=== PATIENT | male | born 1970 | race Caucasian/White ===

== ENCOUNTER 2017-01-28 11:29 | Inpatient (IN) | payer BC, OTHER ==
[2017-01-28] MEDS ORDERED: ACETAMINOPHEN 500 MG TABLET PO STA (11:45)
[2017-01-28] MEDS ORDERED: ACETAMINOPHEN 500 MG TABLET PO ONE (12:23)
[2017-01-28] MEDS ORDERED: SODIUM CHLORIDE 0.9% 1,000 ML IV ONE (12:39)
[2017-01-28] MEDS ORDERED: cefTRIAXone 1 GM in SODIUM CHLORIDE 0.9% MINIBAG 100 ML IV STA (13:02)
[2017-01-28] MEDS ORDERED: VANCOMYCIN INJ 2 GM in SODIUM CHLORIDE 0.9% 500 ML IV STA (13:02)
[2017-01-28] MEDS ORDERED: cefTRIAXone 1 GM VIAL ONE (13:09)
[2017-01-28] MEDS ORDERED: SODIUM CHLORIDE 0.9% MINIBAG 100 ML IV ONE (13:09)
[2017-01-28] MEDS ORDERED: SODIUM CHLORIDE FLUSH 0.9% 10 ML SYRINGE IVP PRN (17:45)
[2017-01-28] MEDS ORDERED: ENOXAPARIN 40 MG/0.4 ML SYRINGE SUBQ STA (17:49)
[2017-01-28] MEDS: SODIUM CHLORIDE 0.9% 1,000 ML IV SCH (19:35)
[2017-01-28] MEDS: SODIUM CHLORIDE FLUSH 0.9% 10 ML SYRINGE IVP SCH (20:52)
[2017-01-28] MEDS: ENOXAPARIN 40 MG/0.4 ML SYRINGE SUBQ SCH (20:52)
[2017-01-29] MEDS ORDERED: IBUPROFEN 600 MG TABLET PO PRN (01:21)
[2017-01-29] MEDS: SODIUM CHLORIDE 0.9% 1,000 ML IV SCH ×2 (01:34→13:05)
[2017-01-29] MEDS: ACETAMINOPHEN 325 MG TABLET PO PRN ×3 (01:34→14:40)
[2017-01-29] MEDS: ceFAZolin 2 GM/50 ML 50 ML IV SCH ×3 (06:28→21:30)
[2017-01-29] MEDS: SODIUM CHLORIDE FLUSH 0.9% 10 ML SYRINGE IVP SCH ×3 (06:32→21:29)
[2017-01-29] MEDS: POLYETHYLENE GLYCOL 3350 17 GM PACKET PO SCH (08:43)
[2017-01-29] MEDS: ENOXAPARIN 40 MG/0.4 ML SYRINGE SUBQ SCH ×2 (08:43→21:28)
[2017-01-30] MEDS: SODIUM CHLORIDE 0.9% 1,000 ML IV SCH ×3 (03:07→20:59)
[2017-01-30] MEDS: ceFAZolin 2 GM/50 ML 50 ML IV SCH ×3 (05:49→21:17)
[2017-01-30] MEDS: SODIUM CHLORIDE FLUSH 0.9% 10 ML SYRINGE IVP SCH ×3 (05:54→21:17)
[2017-01-30] MEDS: ENOXAPARIN 40 MG/0.4 ML SYRINGE SUBQ SCH ×2 (09:06→20:59)
[2017-01-30] MEDS: POLYETHYLENE GLYCOL 3350 17 GM PACKET PO SCH (09:06)
[2017-01-30] MEDS: ACETAMINOPHEN 325 MG TABLET PO PRN (12:27)
[2017-01-30] MEDS: SIMETHICONE CHEW 80 MG TABLET PO PRN (13:25)
[2017-01-31] MEDS: ACETAMINOPHEN 325 MG TABLET PO PRN (05:00)
[2017-01-31] MEDS: SIMETHICONE CHEW 80 MG TABLET PO PRN (05:33)
[2017-01-31] MEDS: SODIUM CHLORIDE 0.9% 1,000 ML IV SCH (05:39)
[2017-01-31] MEDS: SODIUM CHLORIDE FLUSH 0.9% 10 ML SYRINGE IVP SCH (05:39)
[2017-01-31] MEDS: ceFAZolin 2 GM/50 ML 50 ML IV SCH (06:08)
[2017-01-31] MEDS: ENOXAPARIN 40 MG/0.4 ML SYRINGE SUBQ SCH (08:20)
[2017-01-31] MEDS: POLYETHYLENE GLYCOL 3350 17 GM PACKET PO SCH (08:21)
[2017-01-31] MEDS ORDERED: AMOX/CLAV 875 MG/125 MG TABLET PO SCH (11:00)
== END 2017-01-31 13:08 | disposition home or self-care (01) | DRG 603 ==
DX: L03.116 Cellulitis of left lower limb (principal); E66.2 Morbid (severe) obesity with alveolar hypoventilation; Z68.43 Body mass index [BMI] 50.0-59.9, adult; I10 Essential (primary) hypertension; G47.33 Obstructive sleep apnea (adult) (pediatric); F41.9 Anxiety disorder, unspecified; I27.2 Other secondary pulmonary hypertension; Z87.891 Personal history of nicotine dependence; Z80.1 Family history of malignant neoplasm of trachea, bronchus and lung

== ENCOUNTER 2017-02-15 10:24 | Outpatient (CLI) | payer OTHER ==
--- NOTE | 2017-02-15 20:09 | XRAY Preliminary Report ---
Exam: XR Chest 2 View PA/LAT IMPRESSION: Mildly low lung volumes. [facility] SITE ID: [id number]
--- NOTE | 2017-02-15 20:22 | XRAY Report ---
EXAM: CHEST RADIOGRAPHY EXAM DATE: 02/15/2017 10:47 AM. CLINICAL HISTORY: Shortness of breath. COMPARISON: 11/18/2013. TECHNIQUE: 2 views. FINDINGS: Lungs/Pleura: No focal opacities evident. No pleural effusion. No pneumothorax. Mild elevation of bot h hemidiaphragms. Mediastinum: Heart and mediastinal contours are unremarkable. Other: None. IMPRESSION: Mildly low lung volumes. [facility] Referring Provider Line: [phone] SITE ID: [id number]
== END 2017-02-15 10:25 | disposition home or self-care (01) ==
LOC: DI.N 10:24
PROVIDERS: ATTEND Physician Assistant
DX: R91.8 Other nonspecific abnormal finding of lung field (principal)
CPT/HCPCS: 71020

== ENCOUNTER 2018-07-12 09:08 | Emergency (ER) | payer OTHER ==
[2018-07-12 09:20] VITALS: BP 148/83
[2018-07-12] MEDS ORDERED: DEXAMETHASONE 10 MG/ML VIAL PO STA (10:14)
--- NOTE | 2018-07-12 10:22 | ED Physician Documentation ---
PD HPI BACK PAIN - Stated complaint Stated Complaint: BACK PX - Chief complaint Chief Complaint: Back Pain - History obtained from History obtained from: Patient - History of Present Illness Timing - onset: How many weeks ago (2) Timing - duration: Weeks (2) Timing - details: Abrupt onset, Still present Location: Mid, Right Quality: Pain, Spasm, Sharp Associated symptoms: No: Fever, Weakness, Numbness, Incontinent of urine, Unable to urinate, Hematuria, Incontinent of stool Improves with: Rest, Ice, Position Worsened by: Movement Contributing factors: Other (shifted postition rapidly to avoid mat sewer effluent and "twinged" his back) Similar symptoms before: No diagnosis Recently seen: Not recently seen - Additional information Additional information: Previously well 47-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 He states that since then he has had pain in his back and this is gotten significantly worse. He states that he has been able to go to work but he is barely able to stand up straight. He has been very uncomfortable at night trying to sleep. He did try a heating pack which seemed to make things worse. He has not had these specific symptoms previously. He has had back spasms previously that of usually resolve within 1-2 days. He denies any saddle anesthesia or numbness or tingling to his legs or pain to his legs. Review of Systems Constitutional: denies: Fever Ears: denies: Ear pain Nose: denies: Congestion Throat: denies: Sore throat Respiratory: denies: Cough GI: denies: Nausea, Vomiting : denies: Dysuria, Frequency Skin: denies: Rash Musculoskeletal: reports: Back pain. denies: Neck pain, Extremity pain Neurologic: denies: Generalized weakness, Focal weakness, Numbness PD PAST MEDICAL HISTORY - Past Medical History Past Medical History: Yes Cardiovascular: None Respiratory: Sleep apnea, CPAP use Endocrine/Autoimmune: None GI: None : None HEENT: None Psych: None Musculoskeletal: None Derm: None - Past Surgical History Past Surgical History: Yes Ortho: Other HEENT: Tonsil/Adenoidectomy - Present Medications Home Medications: Ambulatory Orders Medication Instructions Recorded Confirmed Amox/Clav 875/125 [Augmentin 1 tab PO Q12H #28 tablet 01/31/17 875/125] Cyclobenzaprine [Flexeril] 10 mg PO TID PRN #20 tablet 07/12/18 oxyCODONE/ACET 5/325 [Percocet 5 1 - 2 each PO Q4-6H PRN #20 tablet 07/12/18 mg/325 mg] - Allergies Allergies/Adverse Reactions: Allergies Allergy/AdvReac Type Severity Reaction Status Date / Time No Known Drug Allergies Allergy Verified 11/17/13 10:05 - Social History Does the pt smoke?: No Smoking Status: Never smoker Does the pt drink ETOH?: No Does the pt have substance abuse?: No - Immunizations Immunizations are current?: Yes PD ED PE NORMAL - Vitals Vital signs reviewed: Yes (hypertensive mild ) - General General: Alert and oriented X 3, No acute distress, Well developed/nourished, Other (standing in the exam room resting elbows on counter. ) - HEENT HEENT: Atraumatic, PERRL, EOMI - Neck Neck: Supple, no meningeal sign - Respiratory Respiratory: No respiratory distress - Back Back: No CVA TTP, No spinal TTP, Other (There is tenderness to the paraspinous muscles of the left thoraco/lumbar area. 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, No motor deficit, No sensory deficit, Normal speech Eye Opening: Spontaneous Motor: Obeys Commands Verbal: Oriented GCS Score: 15 - Psych Psych: Normal mood, Normal affect Results - Vitals Vitals: Vital Signs - 24 hr 07/12/18 09:16 Temperature 35.8 C L Heart Rate 69 Respiratory 20 Rate Blood Pressure 148/83 H O2 Saturation 98 Oxygen O2 Source Room air PD MEDICAL DECISION MAKING - ED course Complexity details: considered differential, d/w patient ED course: 47-year-old male (Big heavy kailash) with back spasm is administered dexamethasone 10 mg orally and we will place him on some pain medication muscle relaxant and provide a note for work for 3 days. Departure - Departure Disposition: 01 Home, Self Care Clinical Impression: Spasm of back muscles Condition: Stable Instructions: ED Spasm Back No Trauma Follow-Up: Your, doctor [Other] Prescriptions: Cyclobenzaprine [Flexeril] 10 mg PO TID PRN #20 tablet PRN Reason: Spasms oxyCODONE/ACET 5/325 [Percocet 5 mg/325 mg] 1 - 2 each PO Q4-6H PRN #20 tablet PRN Reason: Pain Forms: Activity restrictions
[2018-07-12] MEDS ORDERED: CYCLOBENZAPRINE 10 MG TABLET PO STA (10:34)
== END 2018-07-12 10:42 | disposition home or self-care (01) ==
LOC: ED 09:08
DX: M62.830 Muscle spasm of back (principal); X50.1XXA Overexertion from prolonged static or awkward postures, initial encounter; Y99.0 Civilian activity done for income or pay
CPT/HCPCS: 99283; A9270

== ENCOUNTER 2019-01-28 19:44 | Outpatient (CLI) | payer MEDICAID | END 2019-01-28 19:45 | disposition critical access hospital (66) | LOC: EMS 19:44 | PROVIDERS: ATTEND Surgery | DX: R40.20 Unspecified coma (principal) | CPT/HCPCS: A0425; A0433 ==

== ENCOUNTER 2019-01-28 20:00 | Inpatient (IN) | payer MEDICAID, OTHER ==
[2019-01-28] MEDS ORDERED: PROPOFOL 1000 MG/100 ML 100 ML IV STA (20:06)
[2019-01-28] MEDS ORDERED: SODIUM CHLORIDE 0.9% 1,000 ML IV ONE (20:07)
[2019-01-28 20:15] LABS: MUDS CUTOFF CONCENTRATIONS CUTOFF CONC BELOW:
[2019-01-28] MEDS ORDERED: CHARCOAL ACTIVATED 25 GM/120 ML BOTTLE PO STA (20:15)
[2019-01-28 20:16] LABS: BASOPHILS # (AUTO) 0.1 10^3/uL (0.0-0.1); BASOPHILS % (AUTO) 0.9 %; EOSINOPHILS # (AUTO) 0.2 10^3/uL (0.0-0.7); EOSINOPHILS % (AUTO) 2.1 %; HGB - HEMOGLOBIN 14.7 g/dL (14.0-18.0); LYMPHOCYTES # (AUTO) 1.4 10^3/uL (1.5-3.5); LYMPHOCYTES % (AUTO) 15.4 %; MEAN CORPUSCULAR HEMOGLOBIN 28.4 pg (27.0-31.0); MEAN CORPUSCULAR HGB CONC 32.3 g/dL (32.0-36.0); MEAN CORPUSCULAR VOLUME 87.9 fL (80.0-94.0); MEAN PLATELET VOLUME 8.1 fL (7.4-11.4); MONOCYTES # (AUTO) 0.6 10^3/uL (0.0-1.0); MONOCYTES % (AUTO) 6.5 %; NEUTROPHILS # (AUTO) 6.9 10^3/uL (1.5-6.6); NEUTROPHILS % (AUTO) 75.1 %; PLT - PLATELET COUNT 224 10^3/uL (130-450); RED BLOOD COUNT 5.17 10^6/uL (4.70-6.10); RED CELL DISTRIBUTION WIDTH 15.3 % (12.0-15.0); WHITE BLOOD COUNT 9.2 x10^3/uL (4.8-10.8)
[2019-01-28 20:20] LABS: BILIRUBIN,URINE NEGATIVE (NEGATIVE); GLUCOSE, URINE (UA) NEGATIVE (NEGATIVE); KETONES,URINE (UA) NEGATIVE (NEGATIVE); LEUKOCYTE ESTERASE, URINE NEGATIVE (NEGATIVE); NITRITE,URINE NEGATIVE (NEGATIVE); OCCULT BLOOD,URINE NEGATIVE (NEGATIVE); PH,URINE 5.5 PH (5.0-7.5); PROTEIN,URINE 30 mg/dL (NEGATIVE); UROBILINOGEN,URINE 0.2 (NORMAL) E.U./dL (NORMAL)
--- NOTE | 2019-01-28 20:20 | ED Physician Documentation ---
History of Present Illness - Stated complaint Stated Complaint: OD, INTUBATED - Chief complaint Chief Complaint: General - History obtained from History obtained from: EMS - History of Present Illness Timing: Today Pain level max: 0 Pain level now: 0 - Additonal information Additional information: Patient apparently sent text to friends and family members saying livier, friend went to check on him and found him unconscious with pill bottles nearby of nifedipine, zolpidem, lisinopril hydrochlorothiazide. Intubated by EMS on scene. No change with Narcan. Review of Systems Unable to obtain: Intubated PD PAST MEDICAL HISTORY - Past Medical History Cardiovascular: None Respiratory: Sleep apnea, CPAP use Endocrine/Autoimmune: None GI: None : None HEENT: None Psych: None Musculoskeletal: None Derm: None - Past Surgical History Past Surgical History: Yes Ortho: Other HEENT: Tonsil/Adenoidectomy - Present Medications Home Medications: Ambulatory Orders Medication Instructions Recorded Confirmed Amox/Clav 875/125 [Augmentin 1 tab PO Q12H #28 tablet 01/31/17 875/125] Cyclobenzaprine [Flexeril] 10 mg PO TID PRN #20 tablet 07/12/18 oxyCODONE/ACET 5/325 [Percocet 5 1 - 2 each PO Q4-6H PRN #20 tablet /20/18 mg/325 mg] - Allergies Allergies/Adverse Reactions: Allergies Allergy/AdvReac Type Severity Reaction Status Date / Time No Known Drug Allergies Allergy Verified 11/17/13 10:05 - Social History Does the pt smoke?: No Smoking Status: Never smoker Does the pt drink ETOH?: No Does the pt have substance abuse?: No - Immunizations Immunizations are current?: Yes PD ED PE NORMAL - Vitals Vital signs reviewed: Yes - General General: Other (intubated, paralyzed. morbidly obese) - HEENT HEENT: Moist mucous membranes, Other (ETT tube in place) - Neck Neck: Supple, no meningeal sign - Cardiac Cardiac: RRR - Respiratory Respiratory: Clear bilaterally - Abdomen Abdomen: Soft, Non distended - Derm Derm: Warm and dry - Extremities Extremities: No edema - Neuro Neuro: Other (paralyzed) Results - Vitals Vitals: Vital Signs - 24 hr 01/28/19 01/28/19 01/28/19 20:04 20:15 20:30 Temperature Heart Rate 89 84 77 Respiratory 23 20 16 Rate Blood Pressure 138/65 H 110/55 L 95/57 L O2 Saturation 89 L 96 98 01/28/19 01/28/19 01/28/19 20:35 20:39 20:55 Temperature 36.4 C L 36.4 C L Heart Rate 75 76 Respiratory 16 16 Rate Blood Pressure 100/69 106/65 O2 Saturation 97 97 Oxygen O2 Source Mechanical ventilator - EKG (time done) *2001 Rate: Rate (enter#) (87) Rhythm: NSR Hudson: Normal Intervals: Normal CT, Wide QRS Ischemia: Normal ST segments Computer interpretation: Agree with computer - Labs Labs: Laboratory Tests 01/28/19 01/28/19 01/28/19 20:08 20:08 20:10 WBC 9.2 RBC 5.17 Hgb 14.7 Hct 45.4 MCV 87.9 MCH 28.4 MCHC 32.3 RDW 15.3 H Plt Count 224 MPV 8.1 Neut # (Auto) 6.9 H Lymph # (Auto) 1.4 L Dorado # (Auto) 0.6 Eos # (Auto) 0.2 Baso # (Auto) 0.1 Absolute Nucleated RBC 0.01 Nucleated RBC % 0.1 PT INR APTT Sodium 140 Potassium 3.8 Chloride 103 Carbon Dioxide 28 Anion Gap 9.0 BUN 22 H Creatinine 0.7 Estimated GFR (MDRD) 119 Glucose 149 H Calcium 8.6 Total Bilirubin 0.4 AST 18 ALT 19 Alkaline Phosphatase 84 Total Protein 7.7 Albumin 3.8 Globulin 3.9 Albumin/Globulin Ratio 1.0 Lipase 23 Urine Color YELLOW Urine Clarity CLEAR Urine pH 5.5 Ur Specific Tutor Key >=1.030 H Urine Protein 30 H Urine Glucose (UA) NEGATIVE Urine Ketones NEGATIVE Urine Occult Blood NEGATIVE Urine Nitrite NEGATIVE Urine Bilirubin NEGATIVE Urine Urobilinogen 0.2 (NORMAL) Ur Leukocyte Esterase NEGATIVE Urine RBC 0-5 Urine WBC 0-3 Ur Squamous Epith Cells RARE Squamous Urine Bacteria None Seen Urine Casts 0-2 Hyaline Casts Ur Microscopic Review INDICATED Urine Culture Comments NOT INDICATED Salicylates < 6.0 Urine Opiates Screen NEGATIVE Ur Oxycodone Screen NEGATIVE Urine Methadone Screen NEGATIVE Ur Propoxyphene Screen NEGATIVE Acetaminophen < 10 L Ur Barbiturates Screen NEGATIVE Ur Tricyclics Screen NEGATIVE Ur Phencyclidine Scrn NEGATIVE Ur Amphetamine Screen NEGATIVE U Methamphetamines Scrn NEGATIVE U Benzodiazepines Scrn NEGATIVE Urine Cocaine Screen NEGATIVE U Cannabinoids Screen NEGATIVE Ethyl Alcohol < 5.0 01/28/19 20:28 WBC RBC Hgb Hct MCV MCH MCHC RDW Plt Count MPV Neut # (Auto) Lymph # (Auto) Dorado # (Auto) Eos # (Auto) Baso # (Auto) Absolute Nucleated RBC Nucleated RBC % PT 12.4 INR 1.1 APTT 28.3 Sodium Potassium Chloride Carbon Dioxide Anion Gap BUN Creatinine Estimated GFR (MDRD) Glucose Calcium Total Bilirubin AST ALT Alkaline Phosphatase Total Protein Albumin Globulin Albumin/Globulin Ratio Lipase Urine Color Urine Clarity Urine pH Ur Specific Tutor Key Urine Protein Urine Glucose (UA) Urine Ketones Urine Occult Blood Urine Nitrite Urine Bilirubin Urine Urobilinogen Ur Leukocyte Esterase Urine RBC Urine WBC Ur Squamous Epith Cells Urine Bacteria Urine Casts Ur Microscopic Review Urine Culture Comments Salicylates Urine Opiates Screen Ur Oxycodone Screen Urine Methadone Screen Ur Propoxyphene Screen Acetaminophen Ur Barbiturates Screen Ur Tricyclics Screen Ur Phencyclidine Scrn Ur Amphetamine Screen U Methamphetamines Scrn U Benzodiazepines Scrn Urine Cocaine Screen U Cannabinoids Screen Ethyl Alcohol - Rads (name of study) cxr Radiology: Prelim report reviewed, EMP read contemporaneously, See rad report (ETT and NG tube in place. ) Procedures - Central Line Central Line Preparation: Unable to obtain consent Central line location: Right Femoral Central line type: Triple lumen Central line aftercare: Chlorhexidine disc placed, Secured, No complications, Bundle checklist complete, Pt tolerated well PD MEDICAL DECISION MAKING - ED course Complexity details: reviewed results, re-evaluated patient, considered differential, d/w product consultant ED course: 48-year-old male status post an intentional overdose today. Appears to be a suicide attempt. NG tube was placed as well as Chowdary catheter. Maintained on a propofol drip. Discussed the case with poison control who recommends placing him in the hospital for continuous monitoring. Frequent blood glucose checks, monitor for seizures and arrhythmias. They state that this may take well over 24 hours because of the extended release nifedipine. He is also prescribed metoprolol and montelukast at home, unclear if he took these or not. Discussed the case with Dr. Sidhu, hospitalist who accepts for admission but states that he will need a central line. Due to body habitus internal jugulars are not an option and subclavian appears risky. Therefore a femoral central line was placed. This will only be in place for less than 24 hours it is my suspicion. Patient admitted to the ICU This document was made in part using voice recognition software. While efforts are made to proofread this document, sound alike and grammatical errors may occur. - Critical Care Time(min): 60 Time Includes: See progress note Data interpretation: See progress note Procedures included in critical care time: See progress note Procedures excluded from critical care time: Central IV, See progress note Departure - Departure Disposition: 66 [facility] DC/Xfer Clinical Impression: Intentional overdose of drug in tablet form, Suicide attempt Condition: Stable
[2019-01-28 20:28] LABS: ACETAMINOPHEN < 10 ug/mL (10-30); ALBUMIN 3.8 g/dL (3.2-5.5); ALKALINE PHOSPHATASE 84 IU/L (42-121); ALT ALANINE AMINOTRANSFERASE 19 IU/L (10-60); AST ASPARTATE AMINOTRANSFERASE 18 IU/L (10-42); BILIRUBIN,TOTAL 0.4 mg/dL (0.2-1.0); BUN - BLOOD UREA NITROGEN 22 mg/dL (6-20); CALCIUM 8.6 mg/dL (8.5-10.3); CARBON DIOXIDE - CO2 28 mmol/L (21-32); CHLORIDE 103 mmol/L (101-111); CREATININE 0.7 mg/dL (0.6-1.2); GFR - MDRD 119 (>89); GLUCOSE 149 mg/dL (70-100); LIPASE 23 U/L (22-51); SALICYLATE < 6.0 mg/dL; SODIUM 140 mmol/L (135-145); TOTAL PROTEIN 7.7 g/dL (6.7-8.2)
[2019-01-28 20:31] LABS: CLARITY,URINE CLEAR (CLEAR)
[2019-01-28 20:32] LABS: BACTERIA,URINE None Seen /HPF (None Seen); CASTS, URINE 0-2 Hyaline Casts /LPF; RBC,URINE 0-5 /HPF (0-5); SQUAMOUS EPITHELIAL CELL,UR RARE Squamous (<= Few)
[2019-01-28 20:33] LABS: AMPHETAMINE SCREEN,URINE NEGATIVE (NEGATIVE); BENZODIAZEPINES SCREEN, URINE NEGATIVE (NEGATIVE); COCAINE SCREEN URINE NEGATIVE (NEGATIVE); METHADONE SCREEN, URINE NEGATIVE (NEGATIVE); METHAMPHETAMINES SCREEN, URINE NEGATIVE (NEGATIVE); OPIATE SCREEN, URINE NEGATIVE (NEGATIVE); OXYCODONE SCREEN, URINE NEGATIVE (NEGATIVE); PROPOXYPHENE SCREEN, URINE NEGATIVE (NEGATIVE); TRICYCLIC ANTIDEPRESSANT,URINE NEGATIVE (NEGATIVE)
[2019-01-28 20:40] LABS: INR 1.1 (0.8-1.2); PT - PROTHROMBIN TIME 12.4 secs (9.9-12.6)
[2019-01-28 20:48] LABS: PARTIAL THROMBOPLASTIN TIME 28.3 secs (24.9-33.3)
--- NOTE | 2019-01-28 20:55 | XRAY Report ---
Reason: Post intubation and NG tube Procedure Date: 01/28/2019 Accession Number: [id number] / [id number] Procedure: XR - Chest for Line Placement CPT Code: FULL RESULT: EXAM: CHEST RADIOGRAPHY EXAM DATE: 01/28/2019 08:27 PM. CLINICAL HISTORY: Patient found unresponsive after overdose today. Post intubation and NG tube. COMPARISON: CHEST 2 VIEW PA/LAT 02/15/2017 10:46 AM. TECHNIQUE: 1 view. FINDINGS: Lungs/Pleura: Mildly low lung volumes. Opacification of inferior third left lung. No pneumothorax. Mild blunting of the left lateral costophrenic angle. Mediastinum: New mild cardiomegaly. Endotracheal tube in place with the tip 4 cm above the gualberto. NG tube in place with the tip in the gastric cardia. Other: None. IMPRESSION: 1. Support devices in good position. 2. Mild cardiomegaly. 3. Left lung base consolidation/atelectasis and a small left pleural effusion. [facility]
[2019-01-28] MEDS ORDERED: VECURONIUM 10 MG VIAL IVP STA (21:00)
[2019-01-28] MEDS ORDERED: SODIUM CHLORIDE FLUSH 0.9% 10 ML SYRINGE IVP PRN (21:00)
[2019-01-28] MEDS ORDERED: DEXTROSE 5%-0.45% NACL 1,000 ML IV SCH (21:00)
--- NOTE | 2019-01-28 21:58 | HISTORY & PHYSICAL EXAMINATION ---
Chief Complaint - Chief Complaint Chief Complaint: intentional drug overdose History of Present Illness - Admitted From Admitted From:: [facility] ED - History Obtained From Records Reviewed: yes History obtained from: chart and ED physician Exam Limitations: sedated and intubated - History of Present Illness HPI Comment/Other: Patient seen on 01/28/19 at 20:00pm "Patient apparently sent text to friends and family members saying josée, friend went to check on him and found him unconscious with pill bottles nearby of nifedipine, zolpidem, lisinopril hydrochlorothiazide. Intubated by EMS on scene. No change with Narcan." The above was obtained from the ED H&P because the patient is currently sedated and intubated. There is no family or friend nearly to provide history History - Past Medical History Cardiovascular: reports: None Respiratory: reports: Sleep apnea, CPAP use, Other (Pulmonary hypertension) Endocrine/Autoimmune: reports: None, Other (morbid obesity) GI: reports: None : reports: None HEENT: reports: None Psych: reports: None Musculoskeletal: reports: None Derm: reports: None MRSA Hx?: No - Past Surgical History Ortho: reports: Other HEENT: reports: Tonsil/Adenoidectomy - Family & Social History Family History: Mother: Cancer (lung cancer), Father: (father of an aortic aneurysm) Living arrangement: At home Living Situation: Alone Social History Notes: As obtained from previous H&P: He used to smoke approximately 1.5 packs per day but stopped 11 years ago. He does not drink alcohol, does not use any illicits. 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 He lives alone in [place]. Had a Divehi short-hair dog. - POLST Patient has POLST: No POLST Status: Full Code Meds/Allgy - Home Medications Home Medications: Ambulatory Orders Medication Instructions Recorded Confirmed Amox/Clav 875/125 [Augmentin 1 tab PO Q12H #28 tablet 01/31/17 875/125] Cyclobenzaprine [Flexeril] 10 mg PO TID PRN #20 tablet 07/12/18 oxyCODONE/ACET 5/325 [Percocet 5 1 - 2 each PO Q4-6H PRN #20 tablet 10/20/18 mg/325 mg] - Allergies Allergies/Adverse Reactions: Allergies Allergy/AdvReac Type Severity Reaction Status Date / Time No Known Drug Allergies Allergy Verified 11/17/13 10:05 Review of Systems - All Other Systems All Other Systems: reports: Other (Limited ROS because the patient is currently sedated and intubated and unable to provide.) Prior Level of Functionality: Independent of activities of daily living Exam - Vital Signs Reviewed Vital Signs: Yes Vital Signs: Vital Signs x48h Temp Pulse Resp BP Pulse Ox 01/28/19 21:38 63 16 91/58 L 95 01/28/19 21:32 63 01/28/19 21:25 36.5 C 77 16 93/65 97 01/28/19 21:10 36.5 C 76 16 92/67 92 01/28/19 21:00 36.5 C 75 16 97/67 95 01/28/19 20:55 36.4 C L 76 16 106/65 97 01/28/19 20:39 36.4 C L 01/28/19 20:35 75 16 100/69 97 01/28/19 20:30 77 16 95/57 L 98 01/28/19 20:15 84 20 110/55 L 96 01/28/19 20:04 89 23 138/65 H 89 L - Physical Exam General Appearance: positive: Other (Sedated and intubated Morbidly obese) Eyes Bilateral: positive: Normal inspection, PERRL, No scleral icterus ENT: positive: Other (mild nose bleed from ng tube insertion) Neck: positive: Trachea midline, Other (very widened neck circumference) Respiratory: positive: Other (decreased breath sounds 2/2 body habitus). negative: Wheezes, Rales, Rhonchi Cardiovascular: positive: Regular rate & rhythm Abdomen: positive: Non-tender, Nml bowel sounds, Other (obese abdomen) Skin: positive: Skin rash (discoloration in groin area) Extremities: positive: Nml appearance, No pedal edema Neurologic/Psychiatric: positive: Other (Sedated and intubated). negative: Oriented x3 Conclusion/Plan - Problem List (1) Intentional overdose of drug in tablet form Conclusion/Plan: Patient ingested unknown doses of nifedipine ER, HCTZ, lisinopril and zolpidem Patient received activated charcoal in the ED NG tube to low intermittent suction Patient intubated and sedated On propofol gtt for sedation On dopamine gtt for blood pressure support 1L NS bolus given. Fluids continued at 125ml/hr Poison control was contacted: Guidelines are to monitor for hyperglycemia, seizures and arrhythmias POC glucose check q3hrs. Anticipating at least 24 hours on vent given extended duration of action of nifedipine (2) Suicide attempt Conclusion/Plan: When medically cleared, please consult social work/psych for evaluation and recs (3) Obesity Qualifiers: Obesity classification: adult class 3 (BMI >= 40) Body mass index: BMI 50.0-59.9 - Lab Results Fish Bones: 01/28/19 20:08 01/28/19 20:08
[2019-01-28] MEDS ORDERED: SODIUM CHLORIDE 0.9% 1,000 ML IV SCH ×3 (22:00→23:49)
[2019-01-28] MEDS: PROPOFOL 1000 MG/100 ML 100 ML IV SCH (22:26)
[2019-01-28] MEDS: DOPamine 800 MG/500 ML 800 MG/500 ML BAG IV SCH (22:36)
--- NOTE | 2019-01-28 22:42 | XRAY Report ---
Reason: femoral line placement Procedure Date: 01/28/2019 Accession Number: [id number] / [id number] Procedure: XR - Chest for Line Placement CPT Code: FULL RESULT: EXAM: CHEST RADIOGRAPHY EXAM DATE: 01/28/2019 10:37 PM. CLINICAL HISTORY: Femoral line placement. COMPARISON: CHEST 1 VIEW 01/28/2019 8:13 PM. TECHNIQUE: 1 view. FINDINGS: Lungs/Pleura: No focal opacities evident. No pleural effusion. No pneumothorax. Mediastinum: Within exam limitations, the cardiomediastinal contour is normal. Other: Endotracheal tube tip is in the mid trachea. IMPRESSION: 1. No acute infiltrates. 2. Endotracheal tube tip in the mid trachea. [facility]
[2019-01-28] MEDS: HEPARIN 5,000 UNIT/ML VIAL SUBQ SCH (22:49)
[2019-01-28] MEDS: NYSTATIN POWDER 15 GM TOP SCH (22:50)
[2019-01-29] MEDS: SODIUM CHLORIDE FLUSH 0.9% 10 ML SYRINGE IVP SCH ×3 (00:39→18:05)
[2019-01-29] MEDS: PROPOFOL 1000 MG/100 ML 100 ML IV SCH ×6 (00:53→21:46)
[2019-01-29] MEDS: SODIUM CHLORIDE 0.9% 1,000 ML IV SCH ×4 (02:21→14:47)
[2019-01-29] MEDS ORDERED: SODIUM CHLORIDE 0.9% 1,000 ML IV ONE ×2 (04:46→05:35)
[2019-01-29] MEDS ORDERED: INSULIN REGULAR HUMAN 100 UNIT/1 ML 10 ML MDV IVP STA (04:52)
[2019-01-29] MEDS ORDERED: DEXTROSE 50% ABBOJECT 25 GM/50 ML SYRINGE IVP ONE (04:53)
[2019-01-29 05:26] LABS: BASOPHILS # (AUTO) 0.1 10^3/uL (0.0-0.1); BASOPHILS % (AUTO) 0.5 %; EOSINOPHILS % (AUTO) 0.3 %; HGB - HEMOGLOBIN 14.2 g/dL (14.0-18.0); LYMPHOCYTES # (AUTO) 0.7 10^3/uL (1.5-3.5); LYMPHOCYTES % (AUTO) 5.9 %; MEAN CORPUSCULAR HEMOGLOBIN 28.7 pg (27.0-31.0); MEAN CORPUSCULAR HGB CONC 32.8 g/dL (32.0-36.0); MEAN CORPUSCULAR VOLUME 87.5 fL (80.0-94.0); MONOCYTES # (AUTO) 0.5 10^3/uL (0.0-1.0); MONOCYTES % (AUTO) 3.7 %; NEUTROPHILS # (AUTO) 11.3 10^3/uL (1.5-6.6); NEUTROPHILS % (AUTO) 89.6 %; PLT - PLATELET COUNT 223 10^3/uL (130-450); RED BLOOD COUNT 4.93 10^6/uL (4.70-6.10); WHITE BLOOD COUNT 12.6 x10^3/uL (4.8-10.8)
[2019-01-29 05:38] LABS: ALBUMIN 3.8 g/dL (3.2-5.5); ALBUMIN/GLOBULIN RATIO 1.2 (1.0-2.2); BILIRUBIN,TOTAL 0.5 mg/dL (0.2-1.0); CALCIUM 8.4 mg/dL (8.5-10.3); CREATININE 1.7 mg/dL (0.6-1.2); MAGNESIUM 1.7 mg/dL (1.7-2.8); PHOSPHORUS 2.5 mg/dL (2.5-4.6); TOTAL PROTEIN 7.1 g/dL (6.7-8.2)
[2019-01-29 05:47] LABS: ABG BASE EXCESS -7.3 mmol/L (-2.0-3.0); ABG HCO3 19.3 mmol/L (22.0-26.0); ABG OXYGEN SATURATION 98 % (94-98); ABG PCO2 43 mmHg (34-45); ABG PH 7.27 (7.35-7.45); ABG PO2 120 mmHg (80-100); ABG TCO2 20.7 MMOL/L (21.0-29.0); ALLEN TEST POSITIVE
[2019-01-29 05:50] LABS: ABG HCO3 21.4 mmol/L (22.0-26.0); ABG PCO2 40 mmHg (34-45); ABG PH 7.35 (7.35-7.45); ABG PO2 85 mmHg (80-100); ABG TCO2 22.6 MMOL/L (21.0-29.0)
[2019-01-29 05:51] LABS: ABG BASE EXCESS -3.8 mmol/L (-2.0-3.0); ABG OXYGEN SATURATION 96 % (94-98); ALLEN TEST POSITIVE
[2019-01-29] MEDS ORDERED: MAGNESIUM SULFATE 2 GRAM 2 GM/50 ML BAG IV ONE (06:00)
[2019-01-29] MEDS: POTASSIUM CHLOR 20 MEQ/100 ML 20 MEQ/100 ML BAG IV SCH ×2 (07:31→08:29)
[2019-01-29] MEDS ORDERED: CALCIUM GLUCONATE 1,000 MG in SODIUM CHLORIDE 0.9% 50 ML IV ONE (08:00)
[2019-01-29] MEDS: DOPamine 800 MG/500 ML 800 MG/500 ML BAG IV SCH ×2 (09:15→13:24)
--- NOTE | 2019-01-29 09:22 | PROVIDER PROGRESS NOTE ---
Assessment/Plan - Problem List (1) Hypotension due to drugs Assessment/Plan: He is on saline iv, Dopamine iv, and got meds to reverse the effects of his Ca- channel viktor. He gets intermittent drops in BP, possibly from intermittent effects of the meds being absorbed. Poison Control said that may last for 24 hours. Continue aggressive daugherty[portive care in ICU. (2) Pulmonary edema determined by examination Assessment/Plan: The patient is (+) >5L since admission, which was less than 24 hours ago, because he was aggressively resuscitated with iv saline, currently infusing at 250 cc/hr. Today's CXR shows pulmonary edema. ET and ng tubes are in proper locations. Will decrease iv hydration rate, as BP is kept adequate with pressors. He may need iv Lasix as well. Will check an EKG, troponins for acute MO, and an Echo to assess LV contractility. Follow BNP and CXR daily as well. (3) ALEXANDER (acute kidney injury) Assessment/Plan: Possibly related to kidney damage when was obtunded and hypotensive at the scene. Aggressive iv fluids have been administered. Will decrease the iv rate and probably start a diuretic for managing the pulmonary edema. Follow renal labs daily. (4) Endotracheally intubated Assessment/Plan: Trial of decreasing his vent settings and CPAP were tried, but no extubation, given his pulmonary edema. Continue gentle sedation. (5) Intentional overdose of drug in tablet form Assessment/Plan: As per H&P. He will need a SW eval when medically stable. (6) Suicide attempt Assessment/Plan: As above. (7) KARELY (obstructive sleep apnea) Assessment/Plan: His home CPAP device will be ordered to use, once he is extubated. (8) Obesity Qualifiers: Obesity classification: adult class 3 (BMI >= 40) Body mass index: BMI 50.0-59.9 Assessment/Plan: Plan as above. - Current Meds Current Meds: Current Medications Generic Name Dose Route Start Last Admin Trade Name Freq PRN Reason Stop Dose Admin Heparin Sodium (Porcine) 5,000 unit 01/28/19 21:00 01/28/19 22:49 SUBQ 5,000 unit BID CHIO Administration Propofol 100 mls @ 7.2 mls/hr 01/28/19 22:00 01/29/19 09:15 Diprivan IV 25 mcg/kg/min .[id number] CHIO 18 mls/hr Titration Protocol 10 MCG/KG/MIN Dopamine HCl/Dextrose 800 mg in 500 mls @ 9 mls/hr 01/28/19 22:00 01/29/19 09:15 Dopamine IV 9 mcg/kg/min .[id number] CHIO 40.5 mls/hr Administration Protocol 2 MCG/KG/MIN Sodium Chloride 1,000 mls @ 250 mls/hr 01/29/19 01:25 01/29/19 07:47 Normal Saline 0.9% IV 250 mls/hr .Q4H CHIO Administration Potassium Chloride 20 meq in 100 mls @ 100 mls/hr 01/29/19 07:00 01/29/19 08:29 Potassium Chloride IV 01/29/19 09:59 100 mls/hr Q2H CHIO Administration Protocol Nystatin 1 applic 01/28/19 22:00 01/28/19 22:50 Nystop TOP 1 applic BID CHIO Administration Sodium Chloride 10 ml 01/29/19 01:00 01/29/19 00:39 Normal Saline Flush 0.9% IVP 10 ml 0100,0900,1700 CHIO Administration - Lab Result Fish Bone Diagrams: 01/29/19 05:10 01/29/19 05:10 - Additional Planning My Orders: My Active Orders 01/29/19 09:18 Miscellaenous Nursing Order [RC] ONCE Subjective - Subjective Nursing Reports: Other (Pt intubated, sedated) Objective Vital Signs: Vital Signs - 24 hr 01/28/19 01/28/19 01/28/19 20:04 20:15 20:30 Temperature Heart Rate 89 84 77 Heart Rate [ Monitoring electrodes] Respiratory 23 20 16 Rate Blood Pressure 138/65 H 110/55 L 95/57 L Blood Pressure [Right Brachial artery] O2 Saturation 89 L 96 98 01/28/19 01/28/19 01/28/19 20:35 20:39 20:55 Temperature 36.4 C L 36.4 C L Heart Rate 75 76 Heart Rate [ Monitoring electrodes] Respiratory 16 16 Rate Blood Pressure 100/69 106/65 Blood Pressure [Right Brachial artery] O2 Saturation 97 97 01/28/19 01/28/19 01/28/19 21:00 21:10 21:19 Temperature 36.5 C 36.5 C Heart Rate 75 76 105 H Heart Rate [ Monitoring electrodes] Respiratory 16 16 Rate Blood Pressure 97/67 92/67 Blood Pressure [Right Brachial artery] O2 Saturation 95 92 01/28/19 01/28/19 01/28/19 21:25 21:30 21:32 Temperature 36.5 C Heart Rate 77 63 Heart Rate [ 64 Monitoring electrodes] Respiratory 16 16 Rate Blood Pressure 93/65 Blood Pressure 91/58 L [Right Brachial artery] O2 Saturation 97 95 01/28/19 01/28/19 01/28/19 21:38 21:59 22:00 Temperature Heart Rate 63 71 69 Heart Rate [ 67 Monitoring electrodes] Respiratory 16 16 Rate Blood Pressure 91/58 L 138/30 H Blood Pressure 138/30 H [Right Brachial artery] O2 Saturation 95 97 01/28/19 01/28/19 01/28/19 22:02 22:03 22:04 Temperature Heart Rate 74 68 66 Heart Rate [ Monitoring electrodes] Respiratory 18 16 16 Rate Blood Pressure 90/55 L Blood Pressure [Right Brachial artery] O2 Saturation 01/28/19 01/28/19 01/28/19 22:05 22:10 22:15 Temperature Heart Rate 70 66 68 Heart Rate [ Monitoring electrodes] Respiratory 16 16 15 Rate Blood Pressure Blood Pressure [Right Brachial artery] O2 Saturation 01/28/19 01/28/19 01/28/19 22:16 22:17 22:20 Temperature Heart Rate 82 69 68 Heart Rate [ Monitoring electrodes] Respiratory 17 16 16 Rate Blood Pressure 84/47 L Blood Pressure [Right Brachial artery] O2 Saturation 01/28/19 01/28/19 01/28/19 22:21 22:22 22:25 Temperature Heart Rate 66 68 67 Heart Rate [ Monitoring electrodes] Respiratory 18 16 14 Rate Blood Pressure 80/40 L Blood Pressure [Right Brachial artery] O2 Saturation 01/28/19 01/28/19 01/28/19 22:29 22:30 22:31 Temperature Heart Rate 66 59 L 66 Heart Rate [ Monitoring electrodes] Respiratory 16 12 25 H Rate Blood Pressure 76/52 L Blood Pressure [Right Brachial artery] O2 Saturation 01/28/19 01/28/19 01/28/19 22:32 22:35 22:40 Temperature Heart Rate 66 64 67 Heart Rate [ Monitoring electrodes] Respiratory 14 19 16 Rate Blood Pressure 79/56 L Blood Pressure [Right Brachial artery] O2 Saturation 01/28/19 01/28/19 01/28/19 22:41 22:42 22:45 Temperature Heart Rate 68 66 62 Heart Rate [ Monitoring electrodes] Respiratory 16 16 17 Rate Blood Pressure 84/59 L Blood Pressure [Right Brachial artery] O2 Saturation 01/28/19 01/28/19 01/28/19 22:48 22:49 22:50 Temperature Heart Rate 65 68 64 Heart Rate [ Monitoring electrodes] Respiratory 16 16 16 Rate Blood Pressure 76/42 L Blood Pressure [Right Brachial artery] O2 Saturation 01/28/19 01/28/19 01/28/19 22:51 22:52 22:55 Temperature Heart Rate 62 70 72 Heart Rate [ Monitoring electrodes] Respiratory 16 16 16 Rate Blood Pressure 75/42 L Blood Pressure [Right Brachial artery] O2 Saturation 01/28/19 01/28/19 01/28/19 22:56 22:57 23:00 Temperature 36.5 C Heart Rate 68 69 72 Heart Rate [ 68 Monitoring electrodes] Respiratory 16 18 17 Rate Blood Pressure 80/35 L Blood Pressure 90/36 L [Right Brachial artery] O2 Saturation 99 01/28/19 01/28/19 01/28/19 23:01 23:02 23:05 Temperature Heart Rate 70 71 72 Heart Rate [ Monitoring electrodes] Respiratory 17 16 16 Rate Blood Pressure 90/36 L Blood Pressure [Right Brachial artery] O2 Saturation 01/28/19 01/28/19 01/28/19 23:06 23:07 23:08 Temperature Heart Rate 71 72 71 Heart Rate [ Monitoring electrodes] Respiratory 16 16 Rate Blood Pressure 96/39 L Blood Pressure [Right Brachial artery] O2 Saturation 01/28/19 01/28/19 01/28/19 23:10 23:11 23:12 Temperature Heart Rate 71 73 75 Heart Rate [ Monitoring electrodes] Respiratory 14 16 18 Rate Blood Pressure 102/70 Blood Pressure [Right Brachial artery] O2 Saturation 01/28/19 01/28/19 01/28/19 23:15 23:16 23:17 Temperature Heart Rate 75 75 76 Heart Rate [ Monitoring electrodes] Respiratory 17 16 15 Rate Blood Pressure 109/27 L Blood Pressure [Right Brachial artery] O2 Saturation 01/28/19 01/28/19 01/28/19 23:20 23:21 23:22 Temperature Heart Rate 78 80 78 Heart Rate [ Monitoring electrodes] Respiratory 16 16 16 Rate Blood Pressure 126/47 L Blood Pressure [Right Brachial artery] O2 Saturation 01/28/19 01/28/19 01/28/19 23:25 23:26 23:27 Temperature Heart Rate 84 83 88 Heart Rate [ Monitoring electrodes] Respiratory 15 12 23 Rate Blood Pressure 118/42 L Blood Pressure [Right Brachial artery] O2 Saturation 01/28/19 01/28/19 01/28/19 23:30 23:31 23:32 Temperature Heart Rate 91 91 91 Heart Rate [ Monitoring electrodes] Respiratory 15 14 14 Rate Blood Pressure 124/53 L Blood Pressure [Right Brachial artery] O2 Saturation 01/28/19 01/28/19 01/28/19 23:35 23:36 23:37 Temperature Heart Rate 93 96 98 Heart Rate [ Monitoring electrodes] Respiratory 16 16 16 Rate Blood Pressure 111/56 L Blood Pressure [Right Brachial artery] O2 Saturation 01/28/19 01/28/19 01/28/19 23:38 23:40 23:45 Temperature Heart Rate 100 97 100 Heart Rate [ Monitoring electrodes] Respiratory 15 16 15 Rate Blood Pressure Blood Pressure [Right Brachial artery] O2 Saturation 01/28/19 01/28/19 01/28/19 23:46 23:47 23:50 Temperature Heart Rate 101 H 102 H 102 H Heart Rate [ Monitoring electrodes] Respiratory 14 17 16 Rate Blood Pressure 129/55 L Blood Pressure [Right Brachial artery] O2 Saturation 01/28/19 01/29/19 01/29/19 23:55 00:00 00:01 Temperature Heart Rate 102 H 99 101 H Heart Rate [ 95 Monitoring electrodes] Respiratory 14 16 15 Rate Blood Pressure Blood Pressure 108/49 L [Right Brachial artery] O2 Saturation 95 01/29/19 01/29/19 01/29/19 00:02 00:05 00:10 Temperature Heart Rate 103 H 101 H 102 H Heart Rate [ Monitoring electrodes] Respiratory 14 19 16 Rate Blood Pressure 108/49 L Blood Pressure [Right Brachial artery] O2 Saturation 01/29/19 01/29/19 01/29/19 00:11 00:12 00:15 Temperature Heart Rate 100 101 H 101 H Heart Rate [ Monitoring electrodes] Respiratory 15 18 14 Rate Blood Pressure 111/49 L Blood Pressure [Right Brachial artery] O2 Saturation 01/29/19 01/29/19 01/29/19 00:16 00:17 00:20 Temperature Heart Rate 98 99 100 Heart Rate [ Monitoring electrodes] Respiratory 15 19 16 Rate Blood Pressure 108/49 L Blood Pressure [Right Brachial artery] O2 Saturation 01/29/19 01/29/19 01/29/19 00:25 00:30 00:31 Temperature Heart Rate 100 99 99 Heart Rate [ Monitoring electrodes] Respiratory 17 18 16 Rate Blood Pressure Blood Pressure [Right Brachial artery] O2 Saturation 01/29/19 01/29/19 01/29/19 00:32 00:35 00:40 Temperature Heart Rate 99 92 99 Heart Rate [ Monitoring electrodes] Respiratory 17 14 22 Rate Blood Pressure 106/47 L Blood Pressure [Right Brachial artery] O2 Saturation 01/29/19 01/29/19 01/29/19 00:41 00:42 00:43 Temperature Heart Rate 98 97 99 Heart Rate [ Monitoring electrodes] Respiratory 16 16 17 Rate Blood Pressure 103/40 L Blood Pressure [Right Brachial artery] O2 Saturation 01/29/19 01/29/19 01/29/19 00:44 00:45 00:46 Temperature Heart Rate 98 100 99 Heart Rate [ Monitoring electrodes] Respiratory 17 18 14 Rate Blood Pressure 105/44 L Blood Pressure [Right Brachial artery] O2 Saturation 01/29/19 01/29/19 01/29/19 00:47 00:50 00:51 Temperature Heart Rate 100 102 H 102 H Heart Rate [ Monitoring electrodes] Respiratory 16 18 16 Rate Blood Pressure 113/47 L Blood Pressure [Right Brachial artery] O2 Saturation 01/29/19 01/29/19 01/29/19 00:52 00:55 00:56 Temperature Heart Rate 105 H 102 H 101 H Heart Rate [ Monitoring electrodes] Respiratory 19 16 16 Rate Blood Pressure 107/41 L Blood Pressure [Right Brachial artery] O2 Saturation 01/29/19 01/29/19 01/29/19 00:57 01:00 01:01 Temperature 36.7 C Heart Rate 105 H 105 H 107 H Heart Rate [ 108 H Monitoring electrodes] Respiratory 17 18 16 Rate Blood Pressure 111/52 L Blood Pressure 108/44 L [Right Brachial artery] O2 Saturation 94 01/29/19 01/29/19 01/29/19 01:02 01:05 01:06 Temperature Heart Rate 107 H 105 H 106 H Heart Rate [ Monitoring electrodes] Respiratory 18 17 16 Rate Blood Pressure 108/44 L Blood Pressure [Right Brachial artery] O2 Saturation 01/29/19 01/29/19 01/29/19 01:07 01:10 01:11 Temperature Heart Rate 105 H 109 H 111 H Heart Rate [ Monitoring electrodes] Respiratory 16 20 19 Rate Blood Pressure 114/44 L Blood Pressure [Right Brachial artery] O2 Saturation 01/29/19 01/29/19 01/29/19 01:12 01:15 01:16 Temperature Heart Rate 110 H 113 H 113 H Heart Rate [ Monitoring electrodes] Respiratory 17 16 15 Rate Blood Pressure 109/61 Blood Pressure [Right Brachial artery] O2 Saturation 01/29/19 01/29/19 01/29/19 01:17 01:19 01:20 Temperature Heart Rate 113 H 112 H 114 H Heart Rate [ Monitoring electrodes] Respiratory 17 16 16 Rate Blood Pressure 111/42 L 116/40 L Blood Pressure [Right Brachial artery] O2 Saturation 01/29/19 01/29/19 01/29/19 01:21 01:22 01:25 Temperature Heart Rate 113 H 113 H 117 H Heart Rate [ Monitoring electrodes] Respiratory 16 20 22 Rate Blood Pressure 111/44 L Blood Pressure [Right Brachial artery] O2 Saturation 01/29/19 01/29/19 01/29/19 01:26 01:27 01:30 Temperature Heart Rate 116 H 115 H 116 H Heart Rate [ Monitoring electrodes] Respiratory 27 H 19 25 H Rate Blood Pressure 151/135 H Blood Pressure [Right Brachial artery] O2 Saturation 01/29/19 01/29/19 01/29/19 01:31 01:32 01:35 Temperature Heart Rate 116 H 117 H 105 H Heart Rate [ Monitoring electrodes] Respiratory 16 25 H 27 H Rate Blood Pressure 172/147 H Blood Pressure [Right Brachial artery] O2 Saturation 01/29/19 01/29/19 01/29/19 01:40 01:42 01:43 Temperature Heart Rate 115 H 119 H 117 H Heart Rate [ Monitoring electrodes] Respiratory 18 21 18 Rate Blood Pressure 107/61 Blood Pressure [Right Brachial artery] O2 Saturation 01/29/19 01/29/19 01/29/19 01:45 01:46 01:47 Temperature Heart Rate 116 H 114 H 118 H Heart Rate [ Monitoring electrodes] Respiratory 19 15 18 Rate Blood Pressure 109/43 L Blood Pressure [Right Brachial artery] O2 Saturation 01/29/19 01/29/19 01/29/19 01:50 01:51 01:52 Temperature Heart Rate 116 H 114 H 117 H Heart Rate [ Monitoring electrodes] Respiratory 16 16 16 Rate Blood Pressure 111/48 L Blood Pressure [Right Brachial artery] O2 Saturation 01/29/19 01/29/19 01/29/19 01:55 01:56 01:57 Temperature Heart Rate 115 H 116 H 115 H Heart Rate [ Monitoring electrodes] Respiratory 16 16 16 Rate Blood Pressure 100/45 L Blood Pressure [Right Brachial artery] O2 Saturation 01/29/19 01/29/19 01/29/19 02:00 02:01 02:02 Temperature 36.7 C Heart Rate 116 H 116 H 117 H Heart Rate [ 117 H Monitoring electrodes] Respiratory 16 16 16 Rate Blood Pressure 112/46 L Blood Pressure 115/44 L [Right Brachial artery] O2 Saturation 96 01/29/19 01/29/19 01/29/19 02:05 02:06 02:07 Temperature Heart Rate 117 H 118 H 117 H Heart Rate [ Monitoring electrodes] Respiratory 16 16 16 Rate Blood Pressure 115/44 L Blood Pressure [Right Brachial artery] O2 Saturation 01/29/19 01/29/19 01/29/19 02:10 02:11 02:12 Temperature Heart Rate 117 H 118 H 118 H Heart Rate [ Monitoring electrodes] Respiratory 16 16 16 Rate Blood Pressure 116/48 L Blood Pressure [Right Brachial artery] O2 Saturation 01/29/19 01/29/19 01/29/19 02:15 02:16 02:17 Temperature Heart Rate 118 H 118 H 117 H Heart Rate [ Monitoring electrodes] Respiratory 16 16 16 Rate Blood Pressure 92/67 Blood Pressure [Right Brachial artery] O2 Saturation 01/29/19 01/29/19 01/29/19 02:20 02:25 02:30 Temperature Heart Rate 117 H 117 H 117 H Heart Rate [ Monitoring electrodes] Respiratory 16 16 18 Rate Blood Pressure Blood Pressure [Right Brachial artery] O2 Saturation 01/29/19 01/29/19 01/29/19 02:31 02:32 02:35 Temperature Heart Rate 115 H 116 H 117 H Heart Rate [ Monitoring electrodes] Respiratory 16 16 16 Rate Blood Pressure 97/42 L Blood Pressure [Right Brachial artery] O2 Saturation 01/29/19 01/29/19 01/29/19 02:40 02:45 02:46 Temperature Heart Rate 118 H 118 H 118 H Heart Rate [ Monitoring electrodes] Respiratory 15 16 16 Rate Blood Pressure Blood Pressure [Right Brachial artery] O2 Saturation 01/29/19 01/29/19 01/29/19 02:47 02:48 02:49 Temperature Heart Rate 117 H 117 H 117 H Heart Rate [ Monitoring electrodes] Respiratory 15 16 14 Rate Blood Pressure 106/81 H 108/38 L 105/68 Blood Pressure [Right Brachial artery] O2 Saturation 01/29/19 01/29/19 01/29/19 02:50 02:51 02:52 Temperature Heart Rate 118 H 118 H 117 H Heart Rate [ Monitoring electrodes] Respiratory 16 16 15 Rate Blood Pressure 107/79 104/50 L 97/54 L Blood Pressure [Right Brachial artery] O2 Saturation 01/29/19 01/29/19 01/29/19 02:53 02:55 03:00 Temperature 37.1 C Heart Rate 117 H 117 H 119 H Heart Rate [ 119 H Monitoring electrodes] Respiratory 16 16 16 Rate Blood Pressure Blood Pressure 101/62 [Right Brachial artery] O2 Saturation 97 01/29/19 01/29/19 01/29/19 03:01 03:02 03:05 Temperature Heart Rate 118 H 120 H 119 H Heart Rate [ Monitoring electrodes] Respiratory 16 17 17 Rate Blood Pressure 101/62 Blood Pressure [Right Brachial artery] O2 Saturation 01/29/19 01/29/19 01/29/19 03:10 03:15 03:16 Temperature Heart Rate 119 H 119 H 120 H Heart Rate [ Monitoring electrodes] Respiratory 16 24 17 Rate Blood Pressure 108/89 H Blood Pressure [Right Brachial artery] O2 Saturation 01/29/19 01/29/19 01/29/19 03:27 03:30 03:31 Temperature Heart Rate 119 H 118 H 119 H Heart Rate [ Monitoring electrodes] Respiratory 17 17 Rate Blood Pressure Blood Pressure [Right Brachial artery] O2 Saturation 01/29/19 01/29/19 01/29/19 03:32 03:35 03:40 Temperature Heart Rate 120 H 118 H 120 H Heart Rate [ Monitoring electrodes] Respiratory 14 14 12 Rate Blood Pressure 104/43 L Blood Pressure [Right Brachial artery] O2 Saturation 01/29/19 01/29/19 01/29/19 03:45 03:46 03:47 Temperature Heart Rate 119 H 118 H 113 H Heart Rate [ Monitoring electrodes] Respiratory 17 12 21 Rate Blood Pressure 105/54 L Blood Pressure [Right Brachial artery] O2 Saturation 01/29/19 01/29/19 01/29/19 03:50 03:55 04:00 Temperature 37.2 C Heart Rate 118 H 118 H 116 H Heart Rate [ 117 H Monitoring electrodes] Respiratory 19 13 14 Rate Blood Pressure Blood Pressure 108/52 L [Right Brachial artery] O2 Saturation 98 01/29/19 01/29/19 01/29/19 04:01 04:02 04:05 Temperature Heart Rate 114 H 113 H 117 H Heart Rate [ Monitoring electrodes] Respiratory 14 17 20 Rate Blood Pressure 108/52 L Blood Pressure [Right Brachial artery] O2 Saturation 01/29/19 01/29/19 01/29/19 04:10 04:15 04:16 Temperature Heart Rate 118 H 117 H 118 H Heart Rate [ Monitoring electrodes] Respiratory 13 16 17 Rate Blood Pressure Blood Pressure [Right Brachial artery] O2 Saturation 01/29/19 01/29/19 01/29/19 04:17 04:20 04:25 Temperature Heart Rate 118 H 111 H 112 H Heart Rate [ Monitoring electrodes] Respiratory 16 22 16 Rate Blood Pressure 98/75 Blood Pressure [Right Brachial artery] O2 Saturation 01/29/19 01/29/19 01/29/19 04:30 04:31 04:35 Temperature Heart Rate 109 H 108 H 108 H Heart Rate [ Monitoring electrodes] Respiratory 16 13 13 Rate Blood Pressure 95/49 L Blood Pressure [Right Brachial artery] O2 Saturation 01/29/19 01/29/19 01/29/19 04:40 04:45 04:46 Temperature Heart Rate 107 H 108 H 112 H Heart Rate [ Monitoring electrodes] Respiratory 14 8 L 22 Rate Blood Pressure Blood Pressure [Right Brachial artery] O2 Saturation 01/29/19 01/29/19 01/29/19 04:47 04:50 04:55 Temperature Heart Rate 111 H 110 H 107 H Heart Rate [ Monitoring electrodes] Respiratory 20 16 16 Rate Blood Pressure 94/45 L Blood Pressure [Right Brachial artery] O2 Saturation 01/29/19 01/29/19 01/29/19 05:00 05:01 05:02 Temperature 37.3 C Heart Rate 111 H 106 H 111 H Heart Rate [ 110 H Monitoring electrodes] Respiratory 18 20 16 Rate Blood Pressure 101/38 L Blood Pressure 101/38 L [Right Brachial artery] O2 Saturation 99 01/29/19 01/29/19 01/29/19 05:05 05:08 05:09 Temperature Heart Rate 108 H 109 H 114 H Heart Rate [ Monitoring electrodes] Respiratory 16 16 17 Rate Blood Pressure 118/41 L Blood Pressure [Right Brachial artery] O2 Saturation 01/29/19 01/29/19 01/29/19 05:10 05:11 05:12 Temperature Heart Rate 107 H 109 H 109 H Heart Rate [ Monitoring electrodes] Respiratory 16 15 14 Rate Blood Pressure 117/43 L Blood Pressure [Right Brachial artery] O2 Saturation 01/29/19 01/29/19 01/29/19 05:15 05:16 05:17 Temperature Heart Rate 107 H 102 H 105 H Heart Rate [ Monitoring electrodes] Respiratory 16 16 15 Rate Blood Pressure 113/44 L Blood Pressure [Right Brachial artery] O2 Saturation 01/29/19 01/29/19 01/29/19 05:20 05:21 05:22 Temperature Heart Rate 105 H 107 H 108 H Heart Rate [ Monitoring electrodes] Respiratory 15 16 16 Rate Blood Pressure 108/51 L Blood Pressure [Right Brachial artery] O2 Saturation 01/29/19 01/29/19 01/29/19 05:25 05:26 05:27 Temperature Heart Rate 109 H 110 H 109 H Heart Rate [ Monitoring electrodes] Respiratory 16 14 15 Rate Blood Pressure 118/40 L Blood Pressure [Right Brachial artery] O2 Saturation 01/29/19 01/29/19 01/29/19 05:30 05:31 05:32 Temperature Heart Rate 111 H 111 H 111 H Heart Rate [ Monitoring electrodes] Respiratory 16 15 14 Rate Blood Pressure 114/44 L Blood Pressure [Right Brachial artery] O2 Saturation 01/29/19 01/29/19 01/29/19 05:59 06:00 06:40 Temperature 37.3 C Heart Rate 109 H 102 H Heart Rate [ 109 H Monitoring electrodes] Respiratory 18 21 Rate Blood Pressure Blood Pressure 118/49 L [Right Brachial artery] O2 Saturation 96 01/29/19 01/29/19 01/29/19 06:45 06:46 06:47 Temperature Heart Rate 102 H 101 H 102 H Heart Rate [ Monitoring electrodes] Respiratory 14 19 17 Rate Blood Pressure 115/48 L Blood Pressure [Right Brachial artery] O2 Saturation 01/29/19 01/29/19 01/29/19 06:50 06:55 07:00 Temperature 37.3 C Heart Rate 99 103 H 106 H Heart Rate [ 105 H Monitoring electrodes] Respiratory 19 18 23 Rate Blood Pressure Blood Pressure 118/49 L [Right Brachial artery] O2 Saturation 97 01/29/19 01/29/19 01/29/19 07:01 07:02 07:05 Temperature Heart Rate 105 H 102 H 99 Heart Rate [ Monitoring electrodes] Respiratory 19 17 16 Rate Blood Pressure 118/49 L Blood Pressure [Right Brachial artery] O2 Saturation 01/29/19 01/29/19 01/29/19 07:10 07:15 07:16 Temperature Heart Rate 102 H 104 H 104 H Heart Rate [ Monitoring electrodes] Respiratory 17 11 L 21 Rate Blood Pressure Blood Pressure [Right Brachial artery] O2 Saturation 01/29/19 01/29/19 01/29/19 07:17 07:20 07:25 Temperature Heart Rate 104 H 104 H 101 H Heart Rate [ Monitoring electrodes] Respiratory 19 19 18 Rate Blood Pressure 106/60 Blood Pressure [Right Brachial artery] O2 Saturation 01/29/19 01/29/19 01/29/19 07:30 07:31 07:32 Temperature Heart Rate 102 H 103 H 103 H Heart Rate [ Monitoring electrodes] Respiratory 16 20 20 Rate Blood Pressure 107/46 L Blood Pressure [Right Brachial artery] O2 Saturation 01/29/19 01/29/19 01/29/19 07:35 07:40 07:45 Temperature Heart Rate 105 H 107 H 100 Heart Rate [ Monitoring electrodes] Respiratory 22 17 16 Rate Blood Pressure Blood Pressure [Right Brachial artery] O2 Saturation 01/29/19 01/29/19 01/29/19 07:46 07:47 07:50 Temperature Heart Rate 96 96 96 Heart Rate [ Monitoring electrodes] Respiratory 21 21 21 Rate Blood Pressure 114/49 L Blood Pressure [Right Brachial artery] O2 Saturation 01/29/19 01/29/19 01/29/19 07:55 08:00 08:01 Temperature Heart Rate 94 90 87 Heart Rate [ 92 Monitoring electrodes] Respiratory 20 20 21 Rate Blood Pressure Blood Pressure 106/49 L [Right Brachial artery] O2 Saturation 95 01/29/19 01/29/19 01/29/19 08:02 08:05 08:10 Temperature Heart Rate 90 91 88 Heart Rate [ Monitoring electrodes] Respiratory 16 18 20 Rate Blood Pressure 106/49 L Blood Pressure [Right Brachial artery] O2 Saturation 01/29/19 01/29/19 01/29/19 08:15 08:16 08:17 Temperature Heart Rate 95 97 97 Heart Rate [ Monitoring electrodes] Respiratory 22 22 22 Rate Blood Pressure 111/50 L Blood Pressure [Right Brachial artery] O2 Saturation 01/29/19 01/29/19 01/29/19 08:20 08:25 08:30 Temperature Heart Rate 100 101 H 98 Heart Rate [ Monitoring electrodes] Respiratory 24 20 22 Rate Blood Pressure Blood Pressure [Right Brachial artery] O2 Saturation 01/29/19 01/29/19 01/29/19 08:31 08:32 08:35 Temperature Heart Rate 95 93 88 Heart Rate [ Monitoring electrodes] Respiratory 20 18 21 Rate Blood Pressure 116/48 L Blood Pressure [Right Brachial artery] O2 Saturation 01/29/19 01/29/19 01/29/19 08:40 08:45 08:46 Temperature Heart Rate 86 90 89 Heart Rate [ Monitoring electrodes] Respiratory 21 21 21 Rate Blood Pressure Blood Pressure [Right Brachial artery] O2 Saturation 01/29/19 01/29/19 01/29/19 08:47 08:50 08:55 Temperature Heart Rate 85 85 85 Heart Rate [ Monitoring electrodes] Respiratory 21 20 20 Rate Blood Pressure 112/51 L Blood Pressure [Right Brachial artery] O2 Saturation 01/29/19 01/29/19 01/29/19 09:00 09:01 09:02 Temperature 37.4 C Heart Rate 77 78 81 Heart Rate [ 78 Monitoring electrodes] Respiratory 19 21 23 Rate Blood Pressure 101/51 L Blood Pressure 101/57 L [Right Brachial artery] O2 Saturation 91 L 01/29/19 09:05 Temperature Heart Rate 77 Heart Rate [ Monitoring electrodes] Respiratory 21 Rate Blood Pressure Blood Pressure [Right Brachial artery] O2 Saturation Oxygen O2 Source Mechanical ventilator I&O (Last 24 Hrs): Intake and Output Totals x24h 01/27/19 01/28/19 01/29/19 23:59 23:59 23:59 Intake Total 26.865 2932.222 Output Total 38 1000 Balance -11.135 1932.222 General: Other (Sedated) HEENT: Other (Sedated, obese, RT intubated) Neck: Supple, Other (Obese) Neuro: Other (Sedated) Cardiovascular: Regular rate Respiratory: No respiratory distress Abdomen: Other (Obese with pannus) Extremities: No edema - Results Results: Laboratory Results WBC 12.6 x10^3/uL (4.8-10.8) H 01/29/19 05:10 RBC 4.93 10^6/uL (4.70-6.10) 01/29/19 05:10 Hgb 14.2 g/dL (14.0-18.0) 01/29/19 05:10 Hct 43.2 % (42.0-52.0) 01/29/19 05:10 MCV 87.5 fL (80.0-94.0) 01/29/19 05:10 MCH 28.7 pg (27.0-31.0) 01/29/19 05:10 MCHC 32.8 g/dL (32.0-36.0) 01/29/19 05:10 RDW 15.0 % (12.0-15.0) 01/29/19 05:10 Plt Count 223 10^3/uL (130-450) 01/29/19 05:10 MPV 8.0 fL (7.4-11.4) 01/29/19 05:10 Neut # (Auto) 11.3 10^3/uL (1.5-6.6) H 01/29/19 05:10 Lymph # (Auto) 0.7 10^3/uL (1.5-3.5) L 01/29/19 05:10 Burt # (Auto) 0.5 10^3/uL (0.0-1.0) 01/29/19 05:10 Eos # (Auto) 0.0 10^3/uL (0.0-0.7) 01/29/19 05:10 Baso # (Auto) 0.1 10^3/uL (0.0-0.1) 01/29/19 05:10 Absolute Nucleated RBC 0.01 x10^3/uL 01/29/19 05:10 Nucleated RBC % 0.0 /100WBC 01/29/19 05:10 PT 12.4 secs (9.9-12.6) 01/28/19 20:28 INR 1.1 (0.8-1.2) 01/28/19 20:28 APTT 28.3 secs (24.9-33.3) 01/28/19 20:28 Bld Gas Analysis Time 0545 01/29/19 05:25 Sample Site LEFT RADIAL 01/29/19 05:25 ABG pH 7.27 (7.35-7.45) L 01/29/19 05:25 ABG pCO2 43 mmHg (34-45) 01/29/19 05:25 ABG pO2 120 mmHg (80-100) H 01/29/19 05:25 ABG HCO3 19.3 mmol/L (22.0-26.0) L 01/29/19 05:25 ABG Total CO2 20.7 MMOL/L (21.0-29.0) L 01/29/19 05:25 ABG O2 Saturation 98 % (94-98) 01/29/19 05:25 ABG Base Excess -7.3 mmol/L (-2.0-3.0) L 01/29/19 05:25 Mikie Test POSITIVE 01/29/19 05:25 Respiration Rate 16 b/min 01/29/19 05:25 O2 Delivery Device VENTILATOR 01/29/19 05:25 Vent Mode SIMV 01/29/19 05:25 FiO2 100.00 01/29/19 05:25 Tidal Volume 700 mL 01/29/19 05:25 PEEP 10 cmH2O 01/29/19 05:25 Pressure Support Vent 10 cmH2O 01/28/19 21:18 Sodium 142 mmol/L (135-145) 01/29/19 05:10 Potassium 3.5 mmol/L (3.5-5.0) 01/29/19 05:10 Chloride 107 mmol/L (101-111) 01/29/19 05:10 Carbon Dioxide 25 mmol/L (21-32) 01/29/19 05:10 Anion Gap 10.0 (6-13) 01/29/19 05:10 BUN 26 mg/dL (6-20) H 01/29/19 05:10 Creatinine 1.7 mg/dL (0.6-1.2) H 01/29/19 05:10 Estimated GFR (MDRD) 43 (>89) L 01/29/19 05:10 Glucose 227 mg/dL (70-100) H 01/29/19 05:10 Calcium 8.4 mg/dL (8.5-10.3) L 01/29/19 05:10 Phosphorus 2.5 mg/dL (2.5-4.6) 01/29/19 05:10 Magnesium 1.7 mg/dL (1.7-2.8) 01/29/19 05:10 Total Bilirubin 0.5 mg/dL (0.2-1.0) 01/29/19 05:10 AST 20 IU/L (10-42) 01/29/19 05:10 ALT 19 IU/L (10-60) 01/29/19 05:10 Alkaline Phosphatase 84 IU/L (42-121) 01/29/19 05:10 Total Protein 7.1 g/dL (6.7-8.2) 01/29/19 05:10 Albumin 3.8 g/dL (3.2-5.5) 01/29/19 05:10 Globulin 3.3 g/dL (2.1-4.2) 01/29/19 05:10 Albumin/Globulin Ratio 1.2 (1.0-2.2) 01/29/19 05:10 Lipase 23 U/L (22-51) 01/28/19 20:08 Urine Color YELLOW 01/28/19 20:10 Urine Clarity CLEAR (CLEAR) 01/28/19 20:10 Urine pH 5.5 PH (5.0-7.5) 01/28/19 20:10 Ur Specific [place] >=1.030 (1.002-1.030) H 01/28/19 20:10 Urine Protein 30 mg/dL (NEGATIVE) H 01/28/19 20:10 Urine Glucose (UA) NEGATIVE mg/dL (NEGATIVE) 01/28/19 20:10 Urine Ketones NEGATIVE mg/dL (NEGATIVE) 01/28/19 20:10 Urine Occult Blood NEGATIVE (NEGATIVE) 01/28/19 20:10 Urine Nitrite NEGATIVE (NEGATIVE) 01/28/19 20:10 Urine Bilirubin NEGATIVE (NEGATIVE) 01/28/19 20:10 Urine Urobilinogen 0.2 (NORMAL) E.U./dL (NORMAL) 01/28/19 20:10 Ur Leukocyte Esterase NEGATIVE (NEGATIVE) 01/28/19 20:10 Urine RBC 0-5 /HPF (0-5) 01/28/19 20:10 Urine WBC 0-3 /HPF (0-3) 01/28/19 20:10 Ur Squamous Epith Cells RARE Squamous (<= Few) 01/28/19 20:10 Urine Bacteria None Seen /HPF (None Seen) 01/28/19 20:10 Urine Casts 0-2 Hyaline Casts /LPF 01/28/19 20:10 Ur Microscopic Review INDICATED 01/28/19 20:10 Urine Culture Comments NOT INDICATED 01/28/19 20:10 Nasal Screen MRSA (PCR) NEGATIVE (NEGATIVE) 01/29/19 21:55 Salicylates < 6.0 mg/dL 01/28/19 20:08 Urine Opiates Screen NEGATIVE (NEGATIVE) 01/28/19 20:10 Ur Oxycodone Screen NEGATIVE (NEGATIVE) 01/28/19 20:10 Urine Methadone Screen NEGATIVE (NEGATIVE) 01/28/19 20:10 Ur Propoxyphene Screen NEGATIVE (NEGATIVE) 01/28/19 20:10 Acetaminophen < 10 ug/mL (10-30) L 01/28/19 20:08 Ur Barbiturates Screen NEGATIVE (NEGATIVE) 01/28/19 20:10 Ur Tricyclics Screen NEGATIVE (NEGATIVE) 01/28/19 20:10 Ur Phencyclidine Scrn NEGATIVE (NEGATIVE) 01/28/19 20:10 Ur Amphetamine Screen NEGATIVE (NEGATIVE) 01/28/19 20:10 U Methamphetamines Scrn NEGATIVE (NEGATIVE) 01/28/19 20:10 U Benzodiazepines Scrn NEGATIVE (NEGATIVE) 01/28/19 20:10 Urine Cocaine Screen NEGATIVE (NEGATIVE) 01/28/19 20:10 U Cannabinoids Screen NEGATIVE (NEGATIVE) 01/28/19 20:10 Ethyl Alcohol < 5.0 mg/dL 01/28/19 20:08 - Procedures Procedures: Procedures NON-INVASIVE MECHANICAL VENTILATION (11/17/13)
[2019-01-29] MEDS: HEPARIN 5,000 UNIT/ML VIAL SUBQ SCH ×2 (10:04→21:15)
[2019-01-29] MEDS: NYSTATIN POWDER 15 GM TOP SCH ×2 (10:07→21:15)
[2019-01-29] MEDS: CHLORHEXIDINE GLUCONATE 15 ML UDC PO SCH ×2 (10:23→21:14)
--- NOTE | 2019-01-29 12:04 | XRAY Report ---
Reason: Desaturates, is intubated on vent Procedure Date: 01/29/2019 Accession Number: [id number] / [id number] Procedure: XR - Chest 1 View X-Ray CPT Code: 02363 FULL RESULT: EXAM: CHEST RADIOGRAPHY EXAM DATE: 01/29/2019 10:58 AM. CLINICAL HISTORY: Desaturates, is intubated on vent. COMPARISON: CHEST FOR LINE PLACEMENT 01/28/2019 10:23 PM. TECHNIQUE: 1 view. FINDINGS: Lungs/Pleura: Mild left hemidiaphragm elevation. Diminished lung volumes. Diffusely increased lung markings. Mediastinum: Within exam limitations, the cardiomediastinal contour is normal. Other: Endotracheal tube tip 4 cm above gualberto. Enteric tube extends into the abdomen. IMPRESSION: 1. Endotracheal tube tip 4 cm above gualberto. 2. Enteric tube extends into the abdomen. 3. Worsening bilateral lung opacities are concerning for edema and/or infection. RADIA
[2019-01-29] MEDS ORDERED: SODIUM CHLORIDE 0.9% 1,000 ML IV SCH (12:07)
[2019-01-29] MEDS ORDERED: FUROSEMIDE 40 MG/4 ML VIAL IVP ONE (14:29)
[2019-01-29 14:47] LABS: ABG PCO2 48 mmHg (34-45)
[2019-01-29 14:48] LABS: ABG BASE EXCESS -3.5 mmol/L (-2.0-3.0); ABG HCO3 23.2 mmol/L (22.0-26.0); ABG OXYGEN SATURATION 94 % (94-98); ABG PO2 68 mmHg (80-100); ABG TCO2 24.7 MMOL/L (21.0-29.0); ALLEN TEST POSITIVE
[2019-01-29] MEDS ORDERED: PERFLUTREN LIPID MICROSPHERES 1.65 MG/1.5 ML VIAL IVP ONE (15:44)
[2019-01-29] MEDS ORDERED: SODIUM CHLORIDE INHALATION 3 ML NEB ONE (18:38)
[2019-01-29] MEDS ORDERED: cefTRIAXone 1 GM in SODIUM CHLORIDE 0.9% MINIBAG 100 ML IV SCH (21:00)
[2019-01-29] MEDS ORDERED: AZITHROMYCIN INJ 500 MG in SODIUM CHLORIDE 0.9% 250 ML IV SCH (21:00)
[2019-01-30] MEDS: SODIUM CHLORIDE FLUSH 0.9% 10 ML SYRINGE IVP SCH ×2 (00:09→07:43)
[2019-01-30] MEDS: DOPamine 800 MG/500 ML 800 MG/500 ML BAG IV SCH ×2 (00:09→10:31)
[2019-01-30] MEDS: PROPOFOL 1000 MG/100 ML 100 ML IV SCH ×3 (04:39→09:31)
[2019-01-30] MEDS: SODIUM CHLORIDE 0.9% 1,000 ML IV SCH (04:43)
[2019-01-30 05:20] LABS: BASOPHILS % (AUTO) 0.2 %; EOSINOPHILS # (AUTO) 0.1 10^3/uL (0.0-0.7); EOSINOPHILS % (AUTO) 1.2 %; HGB - HEMOGLOBIN 13.2 g/dL (14.0-18.0); LYMPHOCYTES % (AUTO) 8.6 %; MEAN CORPUSCULAR HEMOGLOBIN 28.6 pg (27.0-31.0); MEAN CORPUSCULAR HGB CONC 33.1 g/dL (32.0-36.0); MEAN CORPUSCULAR VOLUME 86.3 fL (80.0-94.0); MEAN PLATELET VOLUME 8.3 fL (7.4-11.4); MONOCYTES # (AUTO) 0.8 10^3/uL (0.0-1.0); MONOCYTES % (AUTO) 6.7 %; NEUTROPHILS # (AUTO) 9.5 10^3/uL (1.5-6.6); NEUTROPHILS % (AUTO) 83.3 %; PLT - PLATELET COUNT 186 10^3/uL (130-450); RED BLOOD COUNT 4.62 10^6/uL (4.70-6.10); RED CELL DISTRIBUTION WIDTH 15.5 % (12.0-15.0); WHITE BLOOD COUNT 11.5 x10^3/uL (4.8-10.8)
[2019-01-30 05:34] LABS: ALBUMIN/GLOBULIN RATIO 0.9 (1.0-2.2); BILIRUBIN,TOTAL 0.6 mg/dL (0.2-1.0); CALCIUM 7.9 mg/dL (8.5-10.3); CREATININE 2.2 mg/dL (0.6-1.2); MAGNESIUM 2.1 mg/dL (1.7-2.8); PHOSPHORUS 3.6 mg/dL (2.5-4.6); TOTAL PROTEIN 6.5 g/dL (6.7-8.2)
[2019-01-30 07:38] LABS: HGB - HEMOGLOBIN 13.1 g/dL (14.0-18.0); MEAN CORPUSCULAR HEMOGLOBIN 28.3 pg (27.0-31.0); MEAN CORPUSCULAR HGB CONC 32.7 g/dL (32.0-36.0); MEAN CORPUSCULAR VOLUME 86.4 fL (80.0-94.0); RED BLOOD COUNT 4.62 10^6/uL (4.70-6.10); RED CELL DISTRIBUTION WIDTH 15.2 % (12.0-15.0); WHITE BLOOD COUNT 12.2 x10^3/uL (4.8-10.8)
[2019-01-30] MEDS ORDERED: FUROSEMIDE 40 MG/4 ML VIAL IVP SCH (08:00)
[2019-01-30] MEDS: NYSTATIN POWDER 15 GM TOP SCH (08:02)
[2019-01-30] MEDS: CHLORHEXIDINE GLUCONATE 15 ML UDC PO SCH (08:02)
[2019-01-30 08:06] LABS: ABG BASE EXCESS 0.4 mmol/L (-2.0-3.0); ABG HCO3 26.4 mmol/L (22.0-26.0); ABG OXYGEN SATURATION 94 % (94-98); ABG PCO2 48 mmHg (34-45); ABG PH 7.36 (7.35-7.45); ABG PO2 66 mmHg (80-100); ABG TCO2 27.9 MMOL/L (21.0-29.0); ALLEN TEST POSITIVE
[2019-01-30] MEDS ORDERED: PANTOPRAZOLE 40 MG VIAL IVP SCH (09:00)
[2019-01-30] MEDS: HEPARIN 5,000 UNIT/ML VIAL SUBQ SCH (09:05)
--- NOTE | 2019-01-30 09:17 | XRAY Report ---
Reason: Suicide attempt, intubated at admission Procedure Date: 01/30/2019 Accession Number: [id number] / [id number] Procedure: XR - Chest 1 View X-Ray CPT Code: 69585 FULL RESULT: EXAM: CHEST RADIOGRAPHY EXAM DATE: 01/30/2019 08:47 AM. CLINICAL HISTORY: Suicide attempt, intubated at admission. COMPARISON: CHEST 1 VIEW 01/29/2019 10:41 AM. TECHNIQUE: 1 view. FINDINGS: Lungs/Pleura: Lung volumes remain low with elevation of the left hemidiaphragm and likely left basilar opacities. There is likely a left pleural effusion, small. There is no pneumothorax. Mediastinum: The cardiomediastinal silhouette is widened, stable appearance. Other: The endotracheal tube terminates 2.3 cm above the gualberto. A presumed enteric tube is seen coursing near midline with the radiopaque marker strip ending just below the gualberto. IMPRESSION: Correlate description of presumed enteric tube to presence of enteric tube, this likely has to be advanced. RADIA
--- NOTE | 2019-01-30 10:45 | Discharge Plan ---
Discharge Plan Disposition: 02 Transfer Acute Care Hosp Condition: Critical No Smoking: If you smoke, Please STOP! Call for help.
[2019-01-30 11:36] VITALS: BP 108/49
[2019-01-30] MEDS ORDERED: AZITHROMYCIN INJ 250 MG in SODIUM CHLORIDE 0.9% 250 ML IV SCH (21:00)
--- NOTE | 2019-02-04 11:31 | DISCHARGE SUMMARY ---
Physician: Suzette Abraham MD DATE OF ADMISSION: 01/28/2019 DATE OF DISCHARGE: 01/30/2019 HISTORY OF PRESENT ILLNESS: This is a 48-year-old white male with a history of morbid obesity, sleep apnea who uses a CPAP device, and hypertension. The patient apparently sent a text message to his friends and family members saying goodbye and a friend came to check on him and found him unconscious with pill bottles nearby of Nifedipine, Zolpidem, Lisinopril and HCTZ. An ambulance was called and he was intubated by EMS at the scene. He was brought to the emergency room and had no change in his condition with Narcan. He was admitted to the ICU. HOSPITAL COURSE AND DISCHARGE DIAGNOSES 1. Acute respiratory distress syndrome (ARDS). The admission chest x-ray with ET tube in place showed mild cardiomegaly and left lung base consolidation or atelectasis. He was started on empiric IV antibiotics. His white blood count worsened from 9.2 on admission up to 12.2 on the day of transfer. The chest x- ray showed worsening infiltrates and on the day of transfer showed bilateral fluffy infiltrates suggestive of acute respiratory distress syndrome. His ventilator settings were increased throughout this hospital course. He was on 100% FiO2 and still having desaturations <90. I reached out to [facility] and spoke to the [facility] who kindly accepted him in transfer to their ICU. He was transported via ambulance (because of his morbid obesity, he could not be airlifted). His ventilator setting were adjusted as recommended by the [facility], to treat acute respiratory distress syndrome with increasing PEEP, if his blood pressure could tolerate it. 2. Pneumonia, community-acquired versus healthcare-acquired pneumonia. The patient did have infiltrate seen on admission, but this worsened throughout the entire hospital course suggestive of healthcare-acquired pneumonia or ventilator-associated pneumonia. He was kept on IV antibiotics throughout his course. 3. Respiratory failure requiring intubation. He was sedated on propofol because he was on the ventilator. He had oral care for a ventilated patient and adjustments in his ventilator settings depending on his ABG results. 4. Hypotension due to drugs. The patient's admission blood pressure 138/65 with a pulse of 89, but worsened in under 30 minutes, down to 95/57 with a pulse of 77. The patient required a dopamine drip for maintaining blood pressure, to keep his MAP greater than 65-70. He was also on IV saline hydration (with D5 to provide him some calories). He also got medications to reverse the effects of his calcium channel viktor: charcoal per NG tube, D5 and insulin. The hospital staff was in contact with Poison Control several times while he was here. Troponin levels were drawn and were all normal ruling out an acute myocardial infarction as the cause of the hypotension. BNP was in the 50 range ruling out cardiogenic shock and an Echo was done at the bedside, (using Definity for better visualization, due to his morbid obesity) and it showed normal LV size, concentric LVH present, and normal LVEF. 5. Suicide attempt in tablet form. This was as described in the HPI. 6. Acute kidney injury. The patient's admitting BUN and creatinine were 26 and 1.7, which worsened despite IV hydration and at the time of transfer BUN was 35 and creatinine 2.2. The patient did have a Chowdary in with fair urine output and continuous iv crystalloid and iv pressor support. 7. Morbid obesity, BMI 50-59. As per HPI. 8. History of obstructive sleep apnea. The patient is on a CPAP machine at home. LABORATORY AND IMAGING: Reviewed and summarized above. ALLERGIES: NONE. MEDICATIONS AT TIME OF TRANSFER 1. IV dopamine. 2. IV saline. 3. He got charcoal once in the ER. 4. Narcan administered once in the ER. 5. Heparin 5000 units subcu b.i.d. 6. IV propofol drip. 7. Nystatin topically b.i.d. 8. Peridex orally b.i.d. 9. He got an amp of D50 and 10 units of regular insulin IV x1. 10. Magnesium sulfate replacement IV. 11. Potassium chloride replacement. 12. Calcium gluconate IV replacement. 13. Ceftriaxone 1 g IV daily. 14. Zithromax 500 mg IV daily. 15. Protonix 40 mg IV b.i.d. 16. Furosemide 40 mg IV daily for the last 2 days of his hospitalization. 17. He needed Definity during his Echo. CONDITION AT DISCHARGE: Critical. PHYSICAL EXAMINATION VITAL SIGNS: Blood pressure 108/49, heart rate 103, ventilated with SIMV at 19, FiO2 is 95%, PEEP at 10. HEENT: Revealed the ET tube in place and NG tube in place. NECK: Obese. CHEST: Clear anteriorly. HEART: Heart sounds distant. No audible murmur. ABDOMEN: Obese with a pannus. Decreased bowel sounds, soft, nontender. EXTREMITIES: No clubbing, cyanosis, or edema. NEUROLOGIC: He is sedated, but awakens to his name or to touch, was able to communicate with his eyes or hand movements or shaking his head. FOLLOWUP: This will be determined after his hospitalization at [facility]. CODE STATUS: FULL CODE. Time required to complete his entire discharge, arrangements for transfer to higher level of care, chart review and dictation: Sixty minutes. cc: Henrique Gomez MD TD: 02/04/2019 10:35 MTDD
== END 2019-01-30 11:43 | disposition short-term general hospital (02) | DRG 917 ==
LOC: EDUNIT# → ED 20:00 → ICU 21:00
PROVIDERS: ADMIT Internal Medicine; ATTEND Internal Medicine
PROC: 5A1945Z Respiratory Ventilation, 24-96 Consecutive Hours (ICD-10-PCS; principal; 2019-01-28)
PROC: 06HM33Z Insertion of Infusion Device into Right Femoral Vein, Percutaneous Approach (ICD-10-PCS; 2019-01-28)
DX: T46.1X2A Poisoning by calcium-channel blockers, intentional self-harm, initial encounter (principal); R40.20 Unspecified coma; J80 Acute respiratory distress syndrome; J18.9 Pneumonia, unspecified organism; Z68.43 Body mass index [BMI] 50.0-59.9, adult; J95.851 Ventilator associated pneumonia; N17.9 Acute kidney failure, unspecified; T42.6X2A Poisoning by other antiepileptic and sedative-hypnotic drugs, intentional self-harm, initial encounter; T46.4X2A Poisoning by angiotensin-converting-enzyme inhibitors, intentional self-harm, initial encounter; T50.2X2A Poisoning by carbonic-anhydrase inhibitors, benzothiadiazides and other diuretics, intentional self-harm, initial encounter; I95.2 Hypotension due to drugs; E66.01 Morbid (severe) obesity due to excess calories; I11.9 Hypertensive heart disease without heart failure; I27.20 Pulmonary hypertension, unspecified; G47.33 Obstructive sleep apnea (adult) (pediatric); Y84.8 Other medical procedures as the cause of abnormal reaction of the patient, or of later complication, without mention of misadventure at the time of the procedure; Z78.1 Physical restraint status; Z87.891 Personal history of nicotine dependence
CPT/HCPCS: 36415; 36556; 36600; 51702; 71045; 80053; 80306; 80307; 80320; 80329; 81001; 82803; 83690; 83735; 83880; 84100; 84484; 85025; 85027; 85610; 85730; 87070; 87077; 87150; 87181; 87205; 93005; 93306; 94002; 94003; 94770; 96365; 99291; A9270; J1815; J7040; Q9957; 81003; 87086; 99284

== ENCOUNTER 2023-09-01 16:21 | Outpatient (CLI) | payer MEDICAID | END 2023-09-01 23:59 | disposition short-term general hospital (02) | LOC: EMS 16:21 | DX: R09.89 Other specified symptoms and signs involving the circulatory and respiratory systems (principal); R06.02 Shortness of breath; R05.9 Cough, unspecified; R07.89 Other chest pain | CPT/HCPCS: A0425; A0429; A0999 ==